=== PATIENT | male | born 1985 | race African-American/Black ===

== ENCOUNTER 2019-10-31 20:36 | Emergency (ER) | payer OTHER ==
[~2019-10-31] VITALS: Ht 175.3 cm; Wt 70.0 kg
[2019-10-31 21:12] VITALS: BP 133/82
== END 2019-11-01 00:26 | disposition left against medical advice (07) ==
LOC: ER 20:36
DX: Z53.21 Procedure and treatment not carried out due to patient leaving prior to being seen by health care provider (principal)